=== PATIENT | male | born 1955 | race Caucasian/White ===

== ENCOUNTER 2019-05-04 08:40 | Observation (INO) ==
[2019-05-04] MEDS ORDERED: NITROGLYCERIN SL 0.4 MG TABLET SL ONE (09:10)
[2019-05-04] MEDS ORDERED: NITROGLYCERIN SL 0.4 MG TABLET SL PRN ×2 (09:10→11:29)
[2019-05-04 09:19] LABS: Basophils # 0.1 10*3/uL (0.0-0.2); Basophils % 1.3 % (0.0-0.8); Eosinophils # 0.5 10*3/uL (0.0-0.87); Eosinophils % 6.3 % (0.00-10.9); Hematocrit 44.4 VOL% (42.0-52.0); Hemoglobin 14.2 GM/DL (14.0-18.0); Immature Granulocytes % 0.3 %; Immature Granulocytes Absolute 0.02 #; Lymphocytes # 1.1 10*3/uL (1.4-4.0); Lymphocytes % 14.8 % (21.2-54.2); Mean Corpuscular Volume 92.7 FL (87-102); Mean Platelet Volume 10.6 FL (9.6-12.0); Monocytes % 7.6 % (1.7-12.7); Neutrophils % 69.7 % (38.7-73.9); Platelet Count 257 T/CUMM (130-400); Red Blood Count 4.79 MC/CUMM (3.8-5.5); White Blood Count 7.2 T/CUMM (4-12)
[2019-05-04 09:24] LABS: INR 1.8; PT Patient Result 19.3 SECS (9.6-12.2)
[2019-05-04 09:35] LABS: Calcium 9.1 MG/DL (8.5-10.1); Osmolality,Calculated 280.3 MOS/KG (273-304)
[2019-05-04 09:54] LABS: Apearance,Urine CLEAR (Clear); Bilirubin,Urine Negative (Negative); Blood, Urine Negative (Negative); Glucose,Urine (UA) Negative (Negative); Hyaline Casts,Urine 3 /LPF (0-3); Ketones,Urine Negative (Negative); Mucus,Urine Occasional /LPF (Occasional); Nitrite,Urine Negative (Negative); Protein,Urine Negative; RBC,Urine 1 /HPF (0-4); Sperm,Urine Occasional /HPF (Negative); Squamous Epithelial Cell,Urine Occasional /HPF (0-10); Urine Color Straw (Yellow); Urine Specific Gravity 1.006 (1.001-1.035); Urine Urobilinogen < 2.0 EU/DL (0.2-1.0)
[2019-05-04] MEDS ORDERED: DOCUSATE SODIUM 100 MG CAPSULE PO PRN (11:26)
[2019-05-04] MEDS ORDERED: MORPHINE 4 MG/1 ML VIAL IV PRN (11:26)
[2019-05-04] MEDS ORDERED: POTASSIUM CHLORIDE 20 MEQ TABLET PO PRN (11:26)
[2019-05-04] MEDS ORDERED: MAGNESIUM SULF RIDER 4 GM in PREMIX 1 EACH IV PRN (11:26)
[2019-05-04] MEDS ORDERED: MAGNESIUM SULF RIDER 2 GM in PREMIX 1 EACH IV PRN (11:26)
[2019-05-04] MEDS: SODIUM CHLORIDE 0.45% 1,000 ML IV SCH (11:46)
[2019-05-04 11:52] LABS: Risk Ratio 2.83; VLDL CHOLESTEROL 18.6 MG/DL
[2019-05-04] MEDS ORDERED: INFLUENZA VIRUS VACCINE 0.5 ML SYRINGE IM ONE (13:24)
[2019-05-04] MEDS ORDERED: ASPIRIN 325 MG TABLET PO ONE (13:59)
[2019-05-04] MEDS ORDERED: ACETAMINOPHEN 325 MG TABLET PO ONE (13:59)
[2019-05-04] MEDS ORDERED: PANTOPRAZOLE 40 MG TABLET PO ONE (14:01)
[2019-05-04] MEDS ORDERED: GABAPENTIN 100 MG CAPSULE PO ONE (14:01)
[2019-05-04] MEDS: CLINDAMYCIN 300 MG CAPSULE PO SCH ×3 (14:42→20:25)
[2019-05-04] MEDS: WARFARIN 5 MG TABLET PO SCH (17:05)
[2019-05-04] MEDS: COLCHICINE 0.6 MG CAPSULE PO SCH (20:24)
[2019-05-04] MEDS: carvediloL 6.25 MG TABLET PO SCH (20:24)
[2019-05-04] MEDS: tiZANidine 4 MG TABLET PO PRN (20:26)
[2019-05-04] MEDS: ACETAMINOPHEN 325 MG TABLET PO SCH (20:26)
[2019-05-04] MEDS: GABAPENTIN 100 MG CAPSULE PO SCH (20:26)
[2019-05-04] MEDS: POTASSIUM CHLORIDE 20 MEQ TABLET PO SCH (21:00)
[2019-05-05] MEDS: SODIUM CHLORIDE 0.45% 1,000 ML IV SCH ×2 (03:10→06:36)
[2019-05-05 06:05] LABS: INR 1.8; PT Patient Result 19.2 SECS (9.6-12.2)
[2019-05-05] MEDS: TAMSULOSIN 0.4 MG CAPSULE PO SCH (08:21)
[2019-05-05] MEDS: CLINDAMYCIN 300 MG CAPSULE PO SCH ×4 (08:21→21:07)
[2019-05-05] MEDS: FUROSEMIDE 20 MG TABLET PO SCH (08:21)
[2019-05-05] MEDS: CELECOXIB 200 MG CAPSULE PO SCH (08:21)
[2019-05-05] MEDS: carvediloL 6.25 MG TABLET PO SCH ×2 (08:21→21:07)
[2019-05-05] MEDS: ACETAMINOPHEN 325 MG TABLET PO SCH ×2 (08:21→21:05)
[2019-05-05] MEDS: lisinopriL 2.5 MG TABLET PO SCH (08:21)
[2019-05-05] MEDS: PANTOPRAZOLE 40 MG TABLET PO SCH (08:21)
[2019-05-05] MEDS: SIMVASTATIN 40 MG TABLET PO SCH (08:22)
[2019-05-05] MEDS: MAGNESIUM GLUCONATE 500 MG TABLET PO SCH (08:22)
[2019-05-05] MEDS: ASPIRIN EC 81 MG TABLET PO SCH (08:22)
[2019-05-05] MEDS: COLCHICINE 0.6 MG CAPSULE PO SCH ×2 (08:22→21:06)
[2019-05-05] MEDS: EZETIMIBE 10 MG TABLET PO SCH (08:22)
[2019-05-05] MEDS: allopurinoL 100 MG TABLET PO SCH (08:22)
[2019-05-05] MEDS: GABAPENTIN 100 MG CAPSULE PO SCH ×4 (08:22→21:05)
[2019-05-05] MEDS ORDERED: ESCITALOPRAM 10 MG TABLET PO SCH (09:00)
[2019-05-05] MEDS ORDERED: GABAPENTIN 100 MG CAPSULE PO SCH (10:32)
[2019-05-05] MEDS ORDERED: traMADol 50 MG TABLET PO PRN (10:34)
[2019-05-05] MEDS: LIDOCAINE 5% PATCH TRANSDERM SCH (13:06)
[2019-05-05] MEDS: WARFARIN 5 MG TABLET PO SCH (17:42)
[2019-05-05] MEDS: tiZANidine 4 MG TABLET PO PRN (21:08)
[2019-05-05] MEDS: SERTRALINE 25 MG TABLET PO SCH (21:26)
[2019-05-06] MEDS: POTASSIUM CHLORIDE 20 MEQ TABLET PO SCH (02:10)
[2019-05-06] MEDS: SERTRALINE 25 MG TABLET PO SCH (02:10)
[2019-05-06 05:56] LABS: INR 1.6; PT Patient Result 17.4 SECS (9.6-12.2)
[2019-05-06 07:16] LABS: Troponin I 0.019 NG/ML (0.00-0.045)
[2019-05-06] MEDS: LIDOCAINE 5% PATCH TRANSDERM SCH (10:47)
[2019-05-06] MEDS: FUROSEMIDE 20 MG TABLET PO SCH (10:48)
[2019-05-06] MEDS: GABAPENTIN 100 MG CAPSULE PO SCH ×2 (10:48→16:09)
[2019-05-06] MEDS: MAGNESIUM GLUCONATE 500 MG TABLET PO SCH (10:48)
[2019-05-06] MEDS: lisinopriL 2.5 MG TABLET PO SCH (10:49)
[2019-05-06] MEDS: allopurinoL 100 MG TABLET PO SCH (10:49)
[2019-05-06] MEDS: EZETIMIBE 10 MG TABLET PO SCH (10:49)
[2019-05-06] MEDS: ACETAMINOPHEN 325 MG TABLET PO SCH (10:49)
[2019-05-06] MEDS: ASPIRIN EC 81 MG TABLET PO SCH (10:49)
[2019-05-06] MEDS: COLCHICINE 0.6 MG CAPSULE PO SCH (10:49)
[2019-05-06] MEDS: CLINDAMYCIN 300 MG CAPSULE PO SCH ×2 (10:49→12:13)
[2019-05-06] MEDS: TAMSULOSIN 0.4 MG CAPSULE PO SCH (10:49)
[2019-05-06] MEDS: CELECOXIB 200 MG CAPSULE PO SCH (10:49)
[2019-05-06] MEDS: PANTOPRAZOLE 40 MG TABLET PO SCH (10:50)
[2019-05-06] MEDS: SIMVASTATIN 40 MG TABLET PO SCH (10:50)
[2019-05-06] MEDS: carvediloL 6.25 MG TABLET PO SCH (10:50)
[2019-05-06 11:21] VITALS: BP 131/74
[2019-05-06] MEDS ORDERED: ENOXAPARIN 100 MG/ML SYRINGE SUBCUT ONE (14:45)
[2019-05-07] MEDS ORDERED: WARFARIN 7.5 MG TABLET PO SCH (18:00)
== END 2019-05-06 16:31 | disposition home or self-care (01) ==
LOC: N.EDINP 08:40 → N.ED 08:40 → SUPCPDRO 11:26 → N.2W 12:35 → N.4E 17:51
PROVIDERS: ADMIT Internal Medicine Cardiovascular Disease; ATTEND Internal Medicine Cardiovascular Disease